=== PATIENT | male | born 1990 ===

== ENCOUNTER 2017-10-14 18:27 | Emergency (ER) | payer SELFPAY ==
[2017-10-14 18:41] VITALS: O2SAT 99
[2017-10-14] MEDS ORDERED: Sodium Chloride 0.9% 1,000 ML IV STA (19:22)
--- NOTE | 2017-10-14 19:32 | C.PDOC ---
History Of Present Illness 27yo male, presents to ED with complaints of left lower quadrant pain for the past two days, describes as constant, sharp and worse with palpation or movement. He reports associated mild nausea and constipation. He denies any fever, chills, shortness of breath, vomiting or dysuria. He offers no other medical complaints. Time Seen by Provider: 10/14/17 19:13 Chief Complaint (Nursing): Abdominal Pain History Per: Patient History/Exam Limitations: no limitations Onset/Duration Of Symptoms: Days (2) Location Of Pain/Discomfort: LLQ Quality Of Discomfort: Sharp, "Pain" Associated Symptoms: Nausea, Constipation. denies: Vomiting, Urinary Symptoms Additional History Per: Patient Past Medical History Reviewed: Historical Data, Nursing Documentation, Vital Signs Vital Signs: Last Vital Signs Temp 98.1 F 10/14/17 18:37 Pulse 77 10/14/17 18:37 Resp 20 10/14/17 18:37 BP 118/75 10/14/17 18:37 Pulse Ox 99 10/14/17 19:44 - Medical History PMH: No Chronic Diseases Surgical History: Tonsillectomy Family History: States: No Known Family Hx - Social History Hx Alcohol Use: Yes Hx Substance Use: No - Immunization History Hx Tetanus Toxoid Vaccination: No Hx Influenza Vaccination: No Hx Pneumococcal Vaccination: No Review Of Systems Except As Marked, All Systems Reviewed And Found Negative. Respiratory: Negative for: Shortness of Breath Gastrointestinal: Negative for: Vomiting Physical Exam - Physical Exam Additional Physical Exam Comments: Constitutional: No acute distress. Head: Normocephalic. Atraumatic. Eyes: PERRL. ENT: Moist mucous membranes. Neck: Supple. Cardiovascular: Regular rate. Radial pulses 2+ bilaterally. Chest: No tenderness. Respiratory: Clear to auscultation bilaterally. GI: Left lower quadrant tenderness with guarding. Back: No CVA tenderness. Musculoskeletal: No tenderness or swelling of extremities. Skin: No rash. Neurologic: Alert, no focal deficit. ED Course And Treatment - Laboratory Results Result Diagrams: 10/14/17 19:49 10/14/17 19:49 O2 Sat by Pulse Oximetry: 99 (RA) Pulse Ox Interpretation: Normal Medical Decision Making Medical Decision Making: Impression: 27yo male with abdominal pain Plan: -- CT Abdomen and Pelvis with IV Contrast -- Labs -- Zofran 4mg IV -- IV Fluids FINDINGS: Lung bases: Unremarkable. No mass. No consolidation. ABDOMEN: Liver: Unremarkable. No mass. Gallbladder and bile ducts: Unremarkable. No calcified stones. No ductal dilation. Pancreas: Unremarkable. No mass. No ductal dilation. Spleen: Unremarkable. No splenomegaly. Adrenals: Unremarkable. No mass. Kidneys and ureters: Unremarkable. No solid mass. No hydronephrosis. Stomach and bowel: There is inflammatory change along the descending colon. For example, as seen on series 2 image 46. This has central area of fat with a rim of hyperdensity. No diverticula are identified. No obstruction. No mucosal thickening. Appendix: The appendix is not definitely seen, but there are no secondary findings to suggest appendicitis. PELVIS: Bladder: Unremarkable. No mass. Reproductive: Unremarkable as visualized. ABDOMEN and PELVIS: Intraperitoneal space: Unremarkable. No free air. No significant fluid collection. Bones/joints: No acute fracture. No dislocation. Soft tissues: Unremarkable. Vasculature: Unremarkable. No abdominal aortic aneurysm. Lymph nodes: Unremarkable. No enlarged lymph nodes. IMPRESSION: Findings are suggestive of epiploic appendagitis along the descending colon. Diverticulitis would be a less likely consideration. Clinical correlation is advised. Disposition - Disposition Referrals: [facility] [Outside] Disposition: HOME/ ROUTINE Disposition Time: 22:04 Condition: STABLE Prescriptions: Ondansetron ODT [Zofran ODT] 4 mg PO Q8 #12 odt Polyethylene Glycol 3350 [Miralax] 17 gm PO DAILY #238 gm Instructions: Constipation in Adults Forms: [facility] (Azeri), Work Excuse - Clinical Impression Clinical Impression: Epiploic appendagitis - Scribe Statement The provider has reviewed the documentation as recorded by the Vijiibe (Stephanie Stephen) Provider Attestation: All medical record entries made by the Vijiibe were at my direction and personally dictated by me. I have reviewed the chart and agree that the record accurately reflects my personal performance of the history, physical exam, medical decision making, and the department course for this patient. I have also personally directed, reviewed, and agree with the discharge instructions and disposition.
[2017-10-14 19:52] LABS: BASO % 0.5 % (0.0-2.0); EOS # 0.2 K/uL (0.0-0.7); EOS % 1.9 % (0.0-4.0); LYMPH # 2.9 K/uL (1.0-4.3); LYMPH % 34.2 % (20.0-40.0); MEAN CELL VOLUME 85.1 fL (80.0-94.0); MEAN CORPUSCULAR HEMOGLOBIN 29.6 pg (27.0-31.0); MEAN CORPUSCULAR HGB CONC 34.8 g/dL (33.0-37.0); MEAN PLATELET VOLUME 7.3 fL (7.2-11.7); MONO # 0.9 K/uL (0.0-0.8); MONO % 10.3 % (0.0-10.0); NEUT # 4.5 K/uL (1.8-7.0); NEUT % 53.1 % (50.0-75.0); NRBC % 0.1 % (0.0-2.0); RBC 5.06 Mil/uL (4.40-5.90); RED CELL DISTRIBUTION WIDTH 12.8 % (11.5-14.5); WHITE BLOOD COUNT 8.4 K/uL (4.8-10.8)
[2017-10-14 20:00] LABS: URINE BILIRUBIN NEGATIVE (NEGATIVE); URINE BLOOD NEGATIVE (NEGATIVE); URINE CLARITY Clear (Clear); URINE COLOR Yellow (YELLOW); URINE GLUCOSE (UA) NORMAL (Normal); URINE LEUKOCYTE ESTERASE NEG Leu/uL (Negative); URINE PROTEIN NEGATIVE (NEGATIVE)
[2017-10-14 20:16] LABS: ALB/GLOB RATIO 1.4 (1.0-2.1); ALBUMIN 4.4 g/dL (3.5-5.0); ALT/SGPT 76 U/L (21-72); AST/SGOT 67 U/L (17-59); BLOOD UREA NITROGEN 14 mg/dL (9-20); CALCIUM 8.7 mg/dl (8.6-10.4); GFR AFRICAN-AMERICAN > 60; GFR NON-AFRICAN AMERICAN > 60; LIPASE 64 U/L (23-300)
[2017-10-14] MEDS ORDERED: Iohexol 350mg/ml 100 ML ONE (20:33)
[2017-10-14 22:30] VITALS: BP 128/74; PULSE 76; RESP 18; TEMP 98
--- NOTE | 2017-10-15 09:37 | CT ---
CT ABDOMEN AND PELVIS HISTORY: LEFT LOWER QUADRANT ABDOMINAL PAIN. COMPARISON: NONE AVAILABLE. TECHNIQUE: MULTIPLE CONTIGUOUS AXIAL IMAGES WERE PERFORMED THROUGH THE ABDOMEN AND PELVIS WITH THE USE OF INTRAVENOUS CONTRAST. SUBSEQUENTLY, SAGITTAL AND CORONAL REFORMATTED IMAGES WERE OBTAINED. FINDINGS: Lung bases are preserved. Liver and gallbladder are preserved. Pancreas and spleen are preserved. Adrenal glands are preserved. Kidneys and ureters are preserved. Inflammatory changes along the descending colon ; for example on series 2, image 46. Central area of fat with a rim of hyperdensity. No gross diverticuli. No gross obstruction. Appendix not well visualized. Urinary bladder appears preserved. Degenerative changes in the osseous structures. Impression: Findings suggestive for an epiploic appendagitis along the descending colon. Diverticulitis would be a less likely consideration but not entirely excluded. Clinical correlation. These findings were preliminarily reported by Dr Lorrie Aryaa from [facility] at 9:50 p.m. on 10/14/2017.
== END 2017-10-14 22:45 | disposition home or self-care (01) ==
LOC: C.ER 18:27
DX: K63.89 Other specified diseases of intestine (principal)
CPT/HCPCS: 74177; 80053; 81001; 83690; 85025; 96361; 96374; 99285; J2405; J7040; Q9967